=== PATIENT | female | born 1960 | race Caucasian/White ===

== ENCOUNTER 2019-09-17 16:15 | Emergency (ER) | payer OTHER ==
--- NOTE | 2019-09-17 17:01 | EDM.PDOC ---
ED HPI GENERAL MEDICAL PROBLEM - General Chief Complaint: ENT Problem Stated Complaint: NOSE INJURY Time Seen by Provider: 09/17/19 16:46 Source of Information: Reports: Patient, RN Notes Reviewed History Limitations: Reports: No Limitations - History of Present Illness INITIAL COMMENTS - FREE TEXT/NARRATIVE: Patient is a 59-year-old female who presents to the ED for the evaluation of a nasal injury. Patient notes she was outside, unloading a cooler, when the wind hit the lid of the cooler, and the lid hit her in the bridge of the nose. She states that she saw a bright light at the time of the accident, but was not knocked out and denies any loss of consciousness. She had a minimal amount of blurred vision at the time of the injury, states this has since subsided. She notes that the tenderness is mainly just to the bridge of her nose, and no other sinus or facial tenderness is noted. There is some bruising to the bridge of the nose along with a 1 cm V shaped superficial laceration, right between her eyes on the bridge of the nose. This is where the lid hit her. She denies any other sick-like symptoms, fever/chills, cough/shortness of breath, nausea/vomiti ng/diarrhea. 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 ED EXAM, ENT - Physical Exam Exam: See Below Exam Limited By: No Limitations General Appearance: Alert, WD/WN, No Apparent Distress Eye Exam: Bilateral Eye: EOMI, Normal Inspection, PERRL Ears: Normal External Exam, Normal Canal, Hearing Grossly Normal, Normal TMs Nose: Normal Mucousa, No Blood, Nasal Ecchymosis (To the bridge of the nose, just midline to the eyes). No: Septal Hematoma Mouth/Throat: Normal Inspection Head: Normocephalic. No: Facial Ecchymosis, Facial Swelling, Facial Tenderness Respiratory/Chest: No Respiratory Distress, Lungs Clear, Normal Breath Sounds, No Accessory Muscle Use, Chest Non-Tender Cardiovascular: Normal Peripheral Pulses, Regular Rate, Rhythm, No Murmur Extremities: Normal Inspection, Normal Capillary Refill Neurological: Alert, Oriented, CN II-XII Intact (grossly), Normal Cognition, No Motor/Sensory Deficits Psychiatric: Normal Affect, Normal Mood Skin: Warm, Dry, Normal Color, No Rash, Wound/Incision (1 cm superficial V- shaped laceration to the bridge of the nose, midline to the eyes with surro unding ecchymosis.) Course - Vital Signs Last Recorded V/S: Last Vital Signs Temp 98.0 F 09/17/19 16:35 Pulse 82 09/17/19 16:35 Resp 16 09/17/19 16:35 BP 152/81 H 09/17/19 16:35 Pulse Ox 100 09/17/19 16:35 - Re-Assessments/Exams Free Text/Narrative Re-Assessment/Exam: 09/17/19 17:01 Patient presents to the ED for the evaluation of her nose injury. Nasal bone x- rays will be obtained for further evaluation. 09/17/19 18:00 Nasal bone x-rays are negative for any discrete fracture or bony abnormality. Other sinuses are clear as well. Patient be discharged home with general recommendations. Departure - Departure Time of Disposition: 18:00 Disposition: Home, Self-Care 01 Condition: Good Clinical Impression: Nose injury Qualifiers: Encounter type: initial encounter Qualified Code(s): S09.92XA - Unspecified injury of nose, initial encounter - Discharge Information *PRESCRIPTION DRUG MONITORING PROGRAM REVIEWED*: No *COPY OF PRESCRIPTION DRUG MONITORING REPORT IN PATIENT KAYLYN: No Instructions: Facial Laceration, [id number] Referrals: PCP,None [Primary Care Provider] - Forms: ED Department Discharge Additional Instructions: You have been evaluated in the ED for your nasal injury. Your x-ray demonstrated no acute fracture or other bony abnormality. Please use ice as tolerated to the affected area to help alleviate the swelling. You may take Tylenol 500 mg or ibuprofen 600mg q6 hrs for pain relief. Please do so until you have a tolerable level of pain with activity. Do not exceed 4000mg Tylenol or 3200mg ibuprofen in a 24 hour time period. Please keep your wound clean and dry, you may cleanse with warm soapy water, apply topical bacitracin as needed for further wound management. Please return to ED if your symptoms should change or worsen. Sepsis Event Note (ED) - Evaluation Sepsis Screening Result: No Definite Risk - Focused Exam Vital Signs: Vital Signs Temp Pulse Resp BP Pulse Ox 09/17/19 16:35 98.0 F 82 16 152/81 H 100
--- NOTE | 2019-09-17 17:57 | CR ---
Nasal bone: 3 views of the nasal bone were obtained. No discrete fracture or other bony abnormality is seen. Visualized paranasal sinuses are clear. Impression: 1. No discrete nasal bone fracture is appreciated. Diagnostic code #1 Study was dictated in MDT
== END 2019-09-17 18:17 | disposition home or self-care (01) ==
LOC: JD.ED 16:15
DX: S01.21XA Laceration without foreign body of nose, initial encounter (principal); W22.8XXA Striking against or struck by other objects, initial encounter
CPT/HCPCS: 70160; 70160-26; 99282; 99283-25